=== PATIENT | female | born 1950 | race Caucasian/White ===

== ENCOUNTER 2017-09-26 14:43 | Emergency (ER) | payer OTHER ==
[~2017-09-26] VITALS: Ht 154.9 cm; Wt 77.9 kg
[~2017-09-26 14:43] MED LIST: ACET-1346 PO; ATOR-26 PO; CALCTAB30 PO; CRG25 PO; DIGO30TA PO; FLNIN/ NAE; FLUT1INH7 PO; LISI-461 PO; OMEG12006 PO; OSEL75CA12 PO; SNG10 PO; SPRIN/30 INH; WARF-246 PO; ZLF/100 PO
[2017-09-26 14:53] VITALS: TEMP 36.7; Ht 154.9 cm; Wt 77.9 kg
[2017-09-26] MEDS ORDERED: FENTANYL CITRATE INJ 50 MCG/1 ML 2 ML VIAL ONE (14:56)
--- NOTE | 2017-09-26 16:21 | DIAGNOSTIC IMAGING REPORT ---
L-SPINE MIN 4 VIEWS ROUTINE HISTORY: Trauma. Pain. low back pain fall COMPARISON: Lateral chest series 03/27/2015 FINDINGS: Mild wedge deformity superior endplate T12. Estimated loss of vertebral body height is 20%. Moderate degenerative change throughout all remaining components of the lumbar region. No additional acute bony abnormality. Moderate degenerative disc changes throughout. No subluxation. IMPRESSION: Mild compression deformity superior endplate T12. Degenerative changes of the lumbar spine. No additional acute bony abnormality. The above report was generated using voice recognition software. It may contain grammatical, syntax or spelling errors. Electronically signed by: Corey Loredo M.D. 09/26/2017 4:20 PM Dictated Date/Time: 09/26/2017 4:18 PM
--- NOTE | 2017-09-26 16:24 | DIAGNOSTIC IMAGING REPORT ---
R RIBS UNILATERAL WITH PA CHEST CLINICAL HISTORY: Right rib pain following fall. COMPARISON STUDY: Chest radiograph August 01, 2016. FINDINGS: There is no pneumothorax or pleural effusion. Moderate cardiomegaly is unchanged. There is no evidence for pulmonary edema. There are multiple old right-sided rib fractures. No definite acute rib fractures are identified. IMPRESSION: No pneumothorax. Numerous old right rib fractures. No acute rib fractures identified by radiography. Electronically signed by: Ovi De Leon M.D. 09/26/2017 4:23 PM Dictated Date/Time: 09/26/2017 4:19 PM
[2017-09-26] MEDS ORDERED: OXYCODONE/ACETAMINOPHEN 5-325 TAB PO STA (16:34)
[2017-09-26] MEDS ORDERED: SALI1SPR3 NAE (16:45)
[2017-09-26] MEDS ORDERED: NYST100010 TD (16:45)
[2017-09-26] MEDS ORDERED: GLUC1CAP33 (16:45)
[2017-09-26] MEDS ORDERED: ALBU18002 INH (16:45)
[2017-09-26] MEDS ORDERED: MULT-506 PO (16:45)
[2017-09-26] MEDS ORDERED: OXGN (16:45)
[2017-09-26 17:15] VITALS: BP 132/95; PULSE 87; O2SAT 94
[2017-09-26] MEDS ORDERED: OXYC-57 PO (17:29)
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
== END 2017-09-26 17:46 | disposition home or self-care (01) ==
LOC: EDBD 14:43 → C.EDB 14:44
DX: S22.080A Wedge compression fracture of T11-T12 vertebra, initial encounter for closed fracture (principal); W19.XXXA Unspecified fall, initial encounter; F41.9 Anxiety disorder, unspecified; J45.909 Unspecified asthma, uncomplicated; I48.91 Unspecified atrial fibrillation; E78.5 Hyperlipidemia, unspecified; I50.9 Heart failure, unspecified; I10 Essential (primary) hypertension; K58.9 Irritable bowel syndrome, unspecified; I71.2 Thoracic aortic aneurysm, without rupture; Z79.01 Long term (current) use of anticoagulants; Z51.81 Encounter for therapeutic drug level monitoring; Z88.5 Allergy status to narcotic agent

== ENCOUNTER 2017-10-11 09:59 | Inpatient (IN) | payer OTHER ==
[2017-10-11] VITALS (13 sets, daily range): BP systolic 74–150; BP diastolic 22–90; PULSE 87–164; TEMP 37.1–38.1; O2SAT 80–99; Ht 157.5 cm; Wt 72.0 kg
[~2017-10-11] VITALS: Ht 157.5 cm; Wt 72.0 kg
[~2017-10-11 09:59] MED LIST changes: +ALBU18002 INH; +GLUC1CAP33; +MULT-506 PO; +NYST100010 TD; -OSEL75CA12 PO; +OXGN; +OXYC-57 PO; +SALI1SPR3 NAE
[2017-10-11] MEDS ORDERED: DILTIAZEM BOLUS / DRIP IV STA ×2 (10:09→13:34)
[2017-10-11] MEDS ORDERED: DILTIAZEM HCL 5 MG/ML 5 ML VIAL BOLUS/OMNI IV ONE (10:15)
[2017-10-11] MEDS ORDERED: ALBUT/IPRATROP 3MG/0.5MG NEB 3 ML VIAL ONE (10:15)
[2017-10-11] MEDS ORDERED: DILTIAZEM HCL 5 MG/ML 5 ML VIAL ONE (10:15)
[2017-10-11] MEDS ORDERED: DILTIAZEM HCL INJ 125 MG in DEXTROSE 5% 100ML IV PRN (10:15)
[2017-10-11 10:30] LABS: BASO % 0.1 %; BASO ABS # 0.03 K/uL (0-0.2); EOS % 0.2 %; EOS ABS # 0.04 K/uL (0-0.5); HEMATOCRIT 38.8 % (37-47); HEMOGLOBIN 13.2 g/dL (12.0-16.0); IG# 0.08 K/uL (0.00-0.02); LYMPH % 6.8 %; LYMPH ABS # 1.46 K/uL (1.2-3.4); MEAN CORPUSCULAR HEMOGLOBIN 32.7 pg (25-34); MEAN PLATELET VOLUME 9.1 fL (7.4-10.4); MONO % 6.1 %; MONO ABS # 1.31 K/uL (0.11-0.59); NEUT % 86.4 %; PLATELET COUNT 267 K/uL (130-400); RED CELL DISTRIBUTION WIDTH CV 13.4 % (11.5-14.5); RED CELL DISTRIBUTION WIDTH SD 47.1 fL (36.4-46.3); WHITE BLOOD COUNT 21.62 K/uL (4.8-10.8)
[2017-10-11] MEDS ORDERED: ALEN70TA2 PO (10:56)
[2017-10-11] MEDS ORDERED: DEXT1SYP6 PO (10:56)
[2017-10-11] MEDS ORDERED: DIPH-437 PO (10:56)
[2017-10-11] MEDS ORDERED: CHOL400T5 PO (10:56)
[2017-10-11] MEDS ORDERED: IMD/2 PO (10:56)
[2017-10-11] MEDS ORDERED: PROB1CAP6 PO (10:56)
[2017-10-11] MEDS ORDERED: CEFTRIAXONE SOD INJ 1 GM ADDVIAL IV STA (10:57)
--- NOTE | 2017-10-11 10:58 | DIAGNOSTIC IMAGING REPORT ---
CHEST ONE VIEW PORTABLE CLINICAL HISTORY: Evaluate Fever/Sepsis fever. Sepsis. COMPARISON STUDY: 08/01/2016 FINDINGS: Moderate cardiomegaly considered stable. Mild increase in prominence of the pulmonary vasculature. Early congestive failure is considered. No focal infiltrate. IMPRESSION: Probable early congestive failure. The above report was generated using voice recognition software. It may contain grammatical, syntax or spelling errors. Electronically signed by: Corey Loredo M.D. 10/11/2017 10:57 AM Dictated Date/Time: 10/11/2017 10:56 AM
[2017-10-11] MEDS ORDERED: AZITHROMYCIN IV 500 MG in DEXTROSE 5% 250ML 250 ML IV ONE (11:00)
[2017-10-11 11:29] LABS: ALBUMIN 2.9 gm/dl (3.4-5.0); ALT/SGPT 31 U/L (12-78); BLOOD UREA NITROGEN 17 mg/dl (7-18); CALCIUM 8.8 mg/dl (8.5-10.1); CARBON DIOXIDE 25 mmol/L (21-32); CREATININE 0.74 mg/dl (0.60-1.20); GLUCOSE 147 mg/dl (70-99); INR 2.3 (0.9-1.1); LIPASE 44 U/L (73-393); POTASSIUM 4.4 mmol/L (3.5-5.1); SODIUM 133 mmol/L (136-145)
[2017-10-11 11:33] LABS: PTT PATIENT 45.5 SECONDS (21.0-31.0)
[2017-10-11 11:40] LABS: ALKALINE PHOSPHATASE 138 U/L (45-117); AST/SGOT 31 U/L (15-37); CKMB 0.7 ng/ml (0.5-3.6); TOTAL PROTEIN 7.3 gm/dl (6.4-8.2)
[2017-10-11 11:56] LABS: INFLUENZA B ANTIGEN Neg for Influ B (NEG)
--- NOTE | 2017-10-11 13:14 | EMERGENCY ROOM VISIT NOTE ---
History Report prepared by Carlos: Madelaine Rodriguez Under the Supervision of: Dr. Fareed Head D.O. First contact with patient: 09:56 Stated Complaint: CHEST PAIN/RESPIRATORY History of Present Illness The patient is a 66 year old female who presents to the Emergency Room with complaints of worsening shortness of breath beginning yesterday. The patient states that she has had a productive cough with greenish sputum for the past 3 days. Last night she developed some chest pain and shortness of breath, which continued today. The patient's son went to check on her this morning and found her having difficulty breathing so he called an ambulance. Per EMS, the patient was in significant respiratory distress upon their arrival. They gave the patient a DuoNeb treatment and placed her on BiPAP. The patient was complaining of 9/10 chest pain. 15 mg IV Cardizem was administered and the patient states that her chest pain is now a 2/10. EMS reports that her HR was initially in the 200s and is now in the 110s. Her BP remained stable en route. She has a history of a-fib. The patient denies abdominal pain. Source of History: patient Onset: yesterday Position: chest Quality: other (shortness of breath) Timing: worsening Modifying Factors (Relieving): other (DuoNeb, BiPAP, Cardizem) Associated Symptoms: + cough, + chest pain, No abdominal pain Review of Systems See HPI for pertinent positives & negatives. A total of 10 systems reviewed and were otherwise negative. Past Medical & Surgical Medical Problems: (1) Acute respiratory failure (2) Anxiety (3) Asthma (4) Atrial fibrillation with RVR (5) Chronic atrial fibrillation (6) Chronic systolic CHF (congestive heart failure) (7) Dyslipidemia (8) Elbow fracture, right (9) HTN (hypertension) (10) IBS (irritable bowel syndrome) (11) Non-ischemic cardiomyopathy (12) Thoracic aortic aneurysm Surgical Problems: (1) History of tonsillectomy and adenoidectomy (2) Hx of cataract surgery Family History No pertinent history stated. Social History Smoking Status: Never Smoker Drug Use: none Marital Status: Housing Status: lives with significant other Occupation Status: employed Current/Historical Medications Scheduled Acetaminophen/Diphenhydramine (Tylenol Pm), 1 TAB PO HS Alendronate Sodium (Fosamax), 70 MG PO WK Atorvastatin (Lipitor), 80 MG PO DAILY Carvedilol (Carvedilol), 25 MG PO BID Cholecalciferol (Vitamin D), 400 UNITS PO DAILY Digoxin (Digitek), 0.125 MG PO DAILY Fluticasone Furoate-Vilanterol (Breo Ellipta 200-25 Mcg/INH), 1 PUFF PO QAM Home O2 Therapy (Oxygen), 2 LITERS NA HS Lisinopril (Lisinopril), 10 MG PO QAM Montelukast Sod (Montelukast Sodium), 10 MG PO DAILY Multivitamin (Multivitamin), 1 TAB PO DAILY Probiotic Product (Probiotic Acidophilus), 1 CAP PO DAILY Sertraline HCl (Sertraline HCl), 100 MG PO BID Warfarin Sodium (Warfarin Sodium), 5 MG PO DAILY Scheduled PRN Acetaminophen (Acetaminophen), 650 MG PO Q6H PRN for Pain or Fever Dextromethorphan-Guaifenesin (Tussin Cough Dm), 10 ML PO Q4H PRN for Cough Fluticasone Propionate (Fluticasone Propionate), 2 SPRAYS SAFIA DAILY PRN for Allergy Symptoms Loperamide Hcl (Imodium), 2 MG PO DIRECTED PRN for Diarrhea Nystatin (Topical) (Nystop), 1 APPLN TD BID PRN for AFFECTED SKIN AREA Oxycodone/Acetaminophen 5MG/325MG (Percocet 5MG/325MG), 1 TAB PO Q6H PRN for Pain Tiotropium [place] (Spiriva Handihaler), 1 PUFF INH DAILY PRN for Shortness of Breath Allergies Coded Allergies: Morphine (Verified Adverse Reaction, Mild, NAUSEA, 09/26/17) Physical Exam Vital Signs Date Time Temp Pulse Resp B/P (MAP) Pulse Ox O2 Delivery O2 Flow Rate FiO2 10/11/17 12:31 107 22 170/95 92 BiPAP 10/11/17 12:26 95 BiPAP 4.0 40 10/11/17 11:57 113 16 148/92 95 Room Air 10/11/17 10:48 113 22 169/113 95 Nasal Cannula 4.0 10/11/17 10:33 BiPAP 10/11/17 10:10 114 10/11/17 10:09 37.7 109 28 146/97 88 Room Air 10/11/17 10:09 97 BiPAP 10/11/17 10:00 106 97 40 Physical Exam CONSTITUTIONAL/VITAL SIGNS: Reviewed / noted above. GENERAL: Non-toxic in appearance. INTEGUMENTARY: Warm, dry, and [place]. HEAD: Normocephalic. EYES: without scleral icterus or trauma. ENT/OROPHARYNX: clear and moist. LYMPHADENOPATHY/NECK: Is supple without lymphadenopathy or meningismus. RESPIRATORY: Diminished bilaterally, tachypnea, occasional cough. CARDIOVASCULAR: Slightly tachycardic and irregular. GI/ABDOMEN: Soft and nontender. No organomegaly or pulsatile mass. No rebound or guarding. Normal bowel sounds. EXTREMITIES: Warm and well perfused. BACK: No CVA tenderness. NEUROLOGICAL: Intact without focal deficits. PSYCHIATRIC: normal affect. MUSCULOSKELETAL: Normally developed with good muscle tone. Medical Decision & Procedures ER Provider Diagnostic Interpretation: Radiology results as stated below per my review and radiologist interpretation: CHEST ONE VIEW PORTABLE CLINICAL HISTORY: Evaluate Fever/Sepsis fever. Sepsis. COMPARISON STUDY: 08/01/2016 FINDINGS: Moderate cardiomegaly considered stable. Mild increase in prominence of the pulmonary vasculature. Early congestive failure is considered. No focal infiltrate. IMPRESSION: Probable early congestive failure. The above report was generated using voice recognition software. It may contain grammatical, syntax or spelling errors. Electronically signed by: Corey Loredo M.D. 10/11/2017 10:57 AM Dictated Date/Time: 10/11/2017 10:56 AM Laboratory Results 10/11/17 10:20 Red Blood Count 4.04, Mean Corpuscular Volume 96.0, Mean Corpuscular Hemoglobin 32.7, Mean Corpuscular Hemoglobin Concent 34.0, Mean Platelet Volume 9.1, Neutrophils (%) (Auto) 86.4, Lymphocytes (%) (Auto) 6.8, Monocytes (%) (Auto) 6.1, Eosinophils (%) (Auto) 0.2, Basophils (%) (Auto) 0.1, Neutrophils # (Auto) 18.70, Lymphocytes # (Auto) 1.46, Monocytes # (Auto) 1.31, Eosinophils # (Auto) 0.04, Basophils # (Auto) 0.03 10/11/17 11:04 Test 10/11/17 10:09 10/11/17 10:20 10/11/17 10:45 10/11/17 11:04 White Blood Count 21.62 K/uL (4.8-10.8) Red Blood Count 4.04 M/uL (4.2-5.4) Hemoglobin 13.2 g/dL (12.0-16.0) Hematocrit 38.8 % (37-47) Mean Corpuscular Volume 96.0 fL (80-100) Mean Corpuscular Hemoglobin 32.7 pg (25-34) Mean Corpuscular Hemoglobin Concent 34.0 g/dl (32-36) Platelet Count 267 K/uL (130-400) Mean Platelet Volume 9.1 fL (7.4-10.4) Neutrophils (%) (Auto) 86.4 % Lymphocytes (%) (Auto) 6.8 % Monocytes (%) (Auto) 6.1 % Eosinophils (%) (Auto) 0.2 % Basophils (%) (Auto) 0.1 % Neutrophils # (Auto) 18.70 K/uL (1.4-6.5) Lymphocytes # (Auto) 1.46 K/uL (1.2-3.4) Monocytes # (Auto) 1.31 K/uL (0.11-0.59) Eosinophils # (Auto) 0.04 K/uL (0-0.5) Basophils # (Auto) 0.03 K/uL (0-0.2) RDW Standard Deviation 47.1 fL (36.4-46.3) RDW Coefficient of Variation 13.4 % (11.5-14.5) Immature Granulocyte % (Auto) 0.4 % Immature Granulocyte # (Auto) 0.08 K/uL (0.00-0.02) Influenza Type A Antigen Neg for Influ A (NEG) Influenza Type B Antigen Neg for Influ B (NEG) Prothrombin Time 24.1 SECONDS (9.0-12.0) Prothromb Time International Ratio 2.3 (0.9-1.1) Activated Partial Thromboplast Time 45.5 SECONDS (21.0-31.0) Partial Thromboplastin Ratio 1.8 Anion Gap 7.0 mmol/L (3-11) Est Creatinine Clear Calc Drug Dose 73.2 ml/min Estimated GFR () 98.5 Estimated GFR (Non- 85.0 BUN/Creatinine Ratio 22.7 (10-20) Calcium Level 8.8 mg/dl (8.5-10.1) Total Bilirubin 0.3 mg/dl (0.2-1) Direct Bilirubin 0.1 mg/dl (0-0.2) Aspartate Amino Transf (AST/SGOT) 31 U/L (15-37) Alanine Aminotransferase (ALT/SGPT) 31 U/L (12-78) Alkaline Phosphatase 138 U/L (45-117) Total Creatine Kinase 49 U/L (26-192) Creatine Kinase MB 0.7 ng/ml (0.5-3.6) Creatine Kinase MB Ratio 1.4 (0-3.0) Troponin I < 0.015 ng/ml (0-0.045) Total Protein 7.3 gm/dl (6.4-8.2) Albumin 2.9 gm/dl (3.4-5.0) Lipase 44 U/L (73-393) Thyroid Stimulating Hormone (TSH) 0.636 uIu/ml (0.300-4.500) Test 10/11/17 12:49 Laboratory results as stated above per my review. Medications Administered Medications (Trade) Dose Ordered Sig/Malinda Route Start Time Stop Time Status Last Admin Dose Admin Diltiazem HCl (Cardizem Inj) 5 mg 1015 ONCE IV 10/11/17 10:15 10/11/17 10:16 DC 10/11/17 10:30 5 MG Diltiazem HCl 125 mg/Dextrose 125 ml @ 0 mls/hr Q0M PRN IV 10/11/17 10:15 11/10/17 10:14 10/11/17 10:30 8 MLS/HR Ceftriaxone Sodium (Rocephin Inj) 1 gm NOW STAT IV 10/11/17 10:57 10/11/17 10:59 DC 10/11/17 12:28 1 GM ECG Per My Interpretation Indication: SOB/dyspnea Rate (beats per minute): 101 Rhythm: atrial fibrillation Findings: no ectopy, other (no ST elevations) ED Course I took medical command prior to the patient's arrival in the department today. 1001: Previous medical records were reviewed. The patient was evaluated in room B12B. A complete history and physical examination was performed. 1009: Diltiazem HCl Bolus/Drip IV 1055: I updated the patient. 1057: Rocephin 1 gm IV 1100: Azithromycin 500 mg/Dextrose 255 ml @ 125 mls/hr IV 1228: I spoke with Zaynab Urbina PA-C. We discussed the patient's case. The patient will be evaluated by the [facility] for further management. 1233: I reassessed the patient at this time. She is feeling better and resting comfortably. I discussed the results and treatment plan with the patient. I answered all pertaining questions that she had. She expressed understanding and verbalized agreement. Medical Decision Differentials considered include acute myocardial infarction, acute coronary syndrome, myocarditis, pericarditis, pericardial effusions /tamponade, esophageal perforation, thoracic aortic dissection, pulmonary embolism, pneumonia, pneumothorax, pancreatitis, shingles, acute cholecystitis, and perforated abdominal viscus. This is a 66-year-old female who presents to the ED with a chief complaint of shortness of breath. The patient was found by the son having shortness of breath and a little confusion. The patient was encountered by EMS and found to be in rapid A. fib with a heart rate around 200. The patient was also having severe respiratory distress requiring CPAP by EMS. Her arrival was preceded by 15 mg of IV Cardizem that slow down her rate into the 100 range. The patient was on BiPAP on arrival. Her breathing appears more comfortable. She is able to speak somewhat through the BiPAP. Her initial EKG showed A. fib at a rate of 101 without acute injuries. Chest x-ray reveals findings suggesting early CHF. The patient does report a productive cough for green and yellow sputum for the past several days. She denies any vomiting but did report some chest discomfort. Her white blood cell count was 21,000. INR is 2.3. She is on Coumadin for chronic A. fib. Complete metabolic panel was unremarkable, troponin was negative, TSH is normal and flu swab was negative. The patient was started on Cardizem drip as well as started empirically on IV antibiotics. She was weaned to nasal cannula at some point during her stay. The patient was seen by the hospitalist for further evaluation and care. Medication Reconcilliation Current Medication List: was personally reviewed by me Blood Pressure Screening Patient's blood pressure: Elevated blood pressure Blood pressure disposition: Referred to PCP Consults Time Called: 1224 Consulting Physician: Zaynab Urbina PA-C Returned Call: 1228 I spoke with Zaynab Urbina PA-C. We discussed the patient's case. [facility] Impression Primary Impression: Acute respiratory failure Additional Impressions: Atrial fibrillation with RVR CHF (congestive heart failure) Pneumonia Critical Care I have personally spent greater than 35 minutes of critical care time in the direct management of this patient. This includes bedside care, interpretation of diagnostic studies, and testing, discussion with consultants, patient, and family members, and other required patient management activities. This 35 minutes is in excess of all separately billable procedures. Scribe Attestation The scribe's documentation has been prepared under my direction and personally reviewed by me in its entirety. I confirm that the note above accurately reflects all work, treatment, procedures, and medical decision making performed by me. Departure Information Dispostion Being Evaluated By Hospitalist Referrals Renée Bateman D.O. (PCP) Problem Qualifiers
[2017-10-11] MEDS ORDERED: ONDANSETRON INJ 2 MG/ML 2 ML VIAL IV PRN (13:15)
[2017-10-11] MEDS ORDERED: ACETAMINOPHEN 325 MG TAB PO PRN (13:15)
[2017-10-11] MEDS ORDERED: ALBU18002 INH (13:55)
[2017-10-11] MEDS ORDERED: CALCTAB30 PO (13:55)
--- NOTE | 2017-10-11 14:31 | History and Physical ---
History & Physical Date & Time of Service: Oct 11, 2017 at 14:17 Chief Complaint: Chest Pain/Respiratory Primary Care Physician: Renée Bateman D.O. History of Present Illness Source: patient, clinic records, hospital records This is a 66yo F with a PMH of chronic A Fib (on coumadin), systolic HF (EF of 50%), asthma/COPD, HTN, MATTHEW and other medical problems listed below who presents with SOB x 2 days. Patient developed a cough 3 days ago that is productive with green sputum. Endorses chills, subjective fever, wheezing and pleuritic chest pain. States that chest hurts only when coughing and is a 2/10. Required 2L NC O2 for the past two nights 2/2 SOB, which she usually does not need. Daughter visited patient this AM and found her in respiratory distress with mild confusion. EMS was called and EKG showed A Fib with RVR at a rate ~ 200. Also found to be hypoxic on room air to 70%. Was given 15mg IV cardizem en route as well as a duoneb treatment and placed on bipap. Once in ED, HR improved to 110s and O2 saturation improved to mid-90s on bipap. Patient states she has been taking all medications and inhalers as scheduled at home but did not taking any today. Denies any lightheadedness, confusion, near-syncope, diaphoresis, visual changes, palpitations, abdominal pain, nausea, vomiting or LE swelling. Past Medical/Surgical History Medical Problems: (1) Anxiety Status: Chronic (2) Asthma Status: Chronic (3) Chronic atrial fibrillation Status: Chronic (4) Chronic systolic CHF (congestive heart failure) Permanent Comment: EF 50-54% Status: Chronic (5) Dyslipidemia Status: Chronic (6) HTN (hypertension) Status: Chronic (7) IBS (irritable bowel syndrome) Status: Chronic (8) Non-ischemic cardiomyopathy Permanent Comment: negative stress test 07/2014 Status: Chronic (9) Thoracic aortic aneurysm Status: Chronic (10) Thoracic vertebral fracture Permanent Comment: Sep 2017. Traumatic T12 fracture, closed Status: Chronic Surgical Problems: (1) History of tonsillectomy and adenoidectomy Status: Resolved (2) Hx of cataract surgery Status: Resolved Family History Diabetes mellitus FH: congestive heart failure Social History Smoking Status: Never Smoker Drug Use: none Marital Status: Housing status: lives with family Immunizations History of Influenza Vaccine: Yes Influenza Vaccine Date: Jul 07, 2014 History of Tetanus Vaccine?: Yes History of Pneumococcal: Yes Pneumococcal Date: Jul 07, 2012 History of Hepatitis B Vaccine: No Allergies Coded Allergies: Morphine (Verified Adverse Reaction, Mild, NAUSEA, 09/26/17) Home Medications Scheduled Alendronate Sodium (Fosamax), 70 MG PO WK Atorvastatin (Lipitor), 80 MG PO DAILY Jrmntkq-Cgfhhkand-Ifyt (Calcium/Magnesium/Zinc), 1 TAB PO DAILY Carvedilol (Carvedilol), 25 MG PO BID Digoxin (Digitek), 0.125 MG PO DAILY Fluticasone Furoate-Vilanterol (Breo Ellipta 200-25 Mcg/INH), 1 PUFF PO QAM Home O2 Therapy (Oxygen), 2 LITERS NA HS Lisinopril (Lisinopril), 10 MG PO QAM Montelukast Sod (Montelukast Sodium), 10 MG PO DAILY Multivitamin (Multivitamin), 1 TAB PO DAILY Probiotic Product (Probiotic Acidophilus), 1 CAP PO DAILY Sertraline HCl (Sertraline HCl), 100 MG PO BID Warfarin Sodium (Warfarin Sodium), 5 MG PO DAILY Scheduled PRN Acetaminophen (Acetaminophen), 650 MG PO Q6H PRN for Pain or Fever Albuterol Sulfate (Proair Respiclick), 2 PUFFS INH Q4 PRN for SOB/Wheezing Dextromethorphan-Guaifenesin (Tussin Cough Dm), 10 ML PO Q4H PRN for Cough Fluticasone Propionate (Fluticasone Propionate), 2 SPRAYS SAFIA DAILY PRN for Allergy Symptoms Tiotropium [place] (Spiriva Handihaler), 1 PUFF INH DAILY PRN for Shortness of Breath Review of Systems Constitutional: + fatigue, No fever, No chills, No sweats, No weight loss, No weakness Eyes: No worsening of vision, No eye pain ENT: + nasal symptoms, No hearing loss, No sore throat, No tinnitus Respiratory: + cough, + sputum, + wheezing, + shortness of breath, + dyspnea on exertion, + dyspnea at rest, No hemoptysis Cardiovascular: No chest pain, No orthopnea, No PND, No edema, No palpitations Abdomen: No pain, No nausea, No vomiting, No diarrhea, No constipation Musculoskeletal: No joint pain, No muscle pain, No swelling, No calf pain Genitourinary - Female: No dysuria, No urinary frequency Neurologic: No memory loss, No paralysis, No weakness, No numbness/tingling Psychiatric: + anxiety, No depression symptoms, No anhedonism Hematologic / Lymphatic: No abnormal bleeding/bruising Physical Exam Vital Signs Date Time Temp Pulse Resp B/P (MAP) Pulse Ox O2 Delivery O2 Flow Rate FiO2 10/11/17 13:21 134 10/11/17 13:21 128 38 153/110 94 BiPAP 10/11/17 12:31 107 22 170/95 92 BiPAP 10/11/17 12:26 95 BiPAP 4.0 40 10/11/17 11:57 113 16 148/92 95 Room Air 10/11/17 10:48 113 22 169/113 95 Nasal Cannula 4.0 10/11/17 10:33 BiPAP 10/11/17 10:10 114 10/11/17 10:09 37.7 109 28 146/97 88 Room Air 10/11/17 10:09 97 BiPAP 10/11/17 10:00 106 97 40 General Appearance: + mild distress, + pertinent finding (Bipap mask in place. Able to nod yes/no. ) Head: normocephalic, atraumatic Eyes: normal inspection, PERRL, sclerae normal ENT: normal ENT inspection, hearing grossly normal, + pertinent finding (bipap mask ) Neck: supple, no JVD Respiratory/Chest: chest non-tender, + wheezing (Diffuse wheezing throughout lung corea ), + pertinent finding (Tachypneic. Improved with bipap ) Cardiovascular: normal peripheral pulses, + tachycardia, + irregularly irregular Abdomen/GI: non tender, soft, no organomegaly, + pertinent finding (ventral hernia ) Back: normal inspection, + pertinent finding (small bruises on thoracic spine. Non-tender ) Extremities/Musculoskelatal: normal inspection, no calf tenderness, no pedal edema Neurologic/Psych: no motor/sensory deficits, alert, normal mood/affect, oriented x 3 Skin: normal color, warm/dry Diagnostics Laboratory Results Results Past 24 Hours Test 10/11/17 10:09 10/11/17 10:20 10/11/17 10:45 10/11/17 11:04 Range/Units Creatine Kinase MB Ratio 1.4 0-3.0 White Blood Count 21.62 4.8-10.8 K/uL Red Blood Count 4.04 4.2-5.4 M/uL Hemoglobin 13.2 12.0-16.0 g/dL Hematocrit 38.8 37-47 % Mean Corpuscular Volume 96.0 80-100 fL Mean Corpuscular Hemoglobin 32.7 25-34 pg Mean Corpuscular Hemoglobin Concent 34.0 32-36 g/dl Platelet Count 267 130-400 K/uL Mean Platelet Volume 9.1 7.4-10.4 fL Neutrophils (%) (Auto) 86.4 % Lymphocytes (%) (Auto) 6.8 % Monocytes (%) (Auto) 6.1 % Eosinophils (%) (Auto) 0.2 % Basophils (%) (Auto) 0.1 % Neutrophils # (Auto) 18.70 1.4-6.5 K/uL Lymphocytes # (Auto) 1.46 1.2-3.4 K/uL Monocytes # (Auto) 1.31 0.11-0.59 K/uL Eosinophils # (Auto) 0.04 0-0.5 K/uL Basophils # (Auto) 0.03 0-0.2 K/uL RDW Standard Deviation 47.1 36.4-46.3 fL RDW Coefficient of Variation 13.4 11.5-14.5 % Immature Granulocyte % (Auto) 0.4 % Immature Granulocyte # (Auto) 0.08 0.00-0.02 K/uL Influenza Type A Antigen Neg for Influ A NEG Influenza Type B Antigen Neg for Influ B NEG Prothrombin Time 24.1 9.0-12.0 SECONDS Prothromb Time International Ratio 2.3 0.9-1.1 Activated Partial Thromboplast Time 45.5 21.0-31.0 SECONDS Partial Thromboplastin Ratio 1.8 Sodium Level 133 136-145 mmol/L Potassium Level 4.4 3.5-5.1 mmol/L Chloride Level 101 98-107 mmol/L Carbon Dioxide Level 25 21-32 mmol/L Anion Gap 7.0 3-11 mmol/L Blood Urea Nitrogen 17 7-18 mg/dl Creatinine 0.74 0.60-1.20 mg/dl Est Creatinine Clear Calc Drug Dose 73.2 ml/min Estimated GFR () 98.5 Estimated GFR (Non- 85.0 BUN/Creatinine Ratio 22.7 10-20 Random Glucose 147 70-99 mg/dl Calcium Level 8.8 8.5-10.1 mg/dl Total Bilirubin 0.3 0.2-1 mg/dl Direct Bilirubin 0.1 0-0.2 mg/dl Aspartate Amino Transf (AST/SGOT) 31 15-37 U/L Alanine Aminotransferase (ALT/SGPT) 31 12-78 U/L Alkaline Phosphatase 138 45-117 U/L Total Creatine Kinase 49 26-192 U/L Creatine Kinase MB 0.7 0.5-3.6 ng/ml Troponin I < 0.015 0-0.045 ng/ml Total Protein 7.3 6.4-8.2 gm/dl Albumin 2.9 3.4-5.0 gm/dl Lipase 44 73-393 U/L Thyroid Stimulating Hormone (TSH) 0.636 0.300-4.500 uIu/ml Test 10/11/17 12:49 10/11/17 13:52 Range/Units Microbiology Results 10/11/17 Blood Culture, Received Pending 10/11/17 Blood Culture, Received Pending Diagnostic Radiology CXR: IMPRESSION: Probable early congestive failure. EKG Atrial fibrillation with rapid ventricular response. Nonspecific ST and T wave abnormality. When compared with ECG of 01-AUG-2016 16:15, Nonspecific T wave abnormality, worse in Inferior leads. Impression Assessment and Plan This is a 66yo F with a PMH of chronic A Fib (on coumadin), mild systolic HF ( EF of 50%), asthma/COPD, HTN, MATTHEW and other medical problems listed below who presents with SOB x 2 days. Acute respiratory failure 2/2 asthma, COPD exacerbation: -Found to be hypoxic in 70s by EMS on room air -Bipap initiated and O2 saturation improved to mid-90s -Recent cough, SOB and leukocytosis of 21.6 -Likely underlying bronchitis vs developing PNA. CXR without opacities -Desaturated when placed on non-rebreather; bipap restarted -ABG with respiratory acidosis with pH 7.27, pco2 of 60 -Cefepime, azithromycin for pulmonary coverage -Blood, sputum cultures pending. Flu PCR pending -IV solu-medrol, xopenex nebs -Pulm consulted. Appreciate recommendations -One-on-one to ensure patient keeps mask on -Keep NPO for now A Fib with RVR: -H/o chronic A fib -Found with A Fib with HR of 200 per EMS -HR now ~110s on cardizem drip -Likely 2/2 to pulmonary infection -Electrolytes, TSH wnl -Continue cardizem drip -Home Digoxin, carvedilol held while NPO -Cont warfarin -INR therapeutic at 2.3 -Cardio consulted -Echo done at bedside There was atrial fibrillation during the examination. The left ventricular cavity size is normal. The LV wall thickness is moderately increased (concentric). There is borderline diffuse left ventricular hypokinesis. The qualitative LV ejection fraction is 5054% The left atrium is severely enlarged (>48 ml/m^2,). The aortic valve is moderately calcified. Mild aortic valve stenosis is present. There is trace aortic insufficiency The proximal ascending thoracic aorta is moderately enlarged Chest pain: -Pleuritic in nature -Denies chest pain otherwise -Initial troponin negative -EKG with A Fib, some ST and T wave abnormalities in inferior leads -H/o non-obstructive CAD -Negative stress test in 2013 -Trend troponin -Repeat EKG in am -Cardio on board Chronic systolic CHF: -Euvolemic on exam -CXR with probable early CHF -BNP pending -Echo as noted above -Given 40mg IV lasix Hyperglycemia: -No documented DM II -Likely 2/2 steroids, duonebs -Loose correction factor -BCG checks Q6H while NPO -Check a1c in AM HTN: -Normotensive -Hold home meds while on Cardizem drip MATTHEW: -Cont Zoloft BID Recent T12 fracture: -Traumatic, closed T12 fracture on 09/26 -Denies any pain currently -PCP just initiated weekly Fosamax for osteoporosis -patient has not started yet -Ortho follow-up needed at discharge -PT/OT evals due to deconditioned state Nocturnal hypoxemia: -Uses 2L NC O2 at night PRN DVT Ppx: Continue warfarin Code status: DNR per discussion with patient PCP: Bhavana Dispo: Admitted to telemetry. Discharge planning ordered. Patient seen in collaboration with Dr. Garcia. Please see addendum. Advanced Directives Existing Living Will: No Existing Power of Metal Grinder: No Resuscitation Status VTE Prophylaxis Will order VTE Prophylaxis: Yes Note ATTENDING ADDENDUM Record reviewed. Patient interviewed and examined. Care coordinated with Zaynab Urbina PA-C. Please refer to her documentation for patient's history. Briefly, 66-year-old female with a history of chronic atrial fibrillation, aortic stenosis, COPD, and other problems. Presented to ED with fever, cough, shortness of breath; found to be in atrial fibrillation with a rapid rate ventricular response. O2 saturation as low as 70% on RA. EXAM: General- adult female, appears to be chronically and acutely ill Neck- trachea midline Lungs- scattered rhonchi, diffuse wheezing, bibasilar rales; acute respiratory distress Cardiovascular- irregular, tachycardic; auscultation very limited due to respiratory distress; + JVD; trace pretibial edema Abdomen- + bowel sounds, soft, nontender Extremities- no cyanosis; no calf tenderness Neuro- lethargic Skin- warm & dry DATA: Troponin less than 0.015. WBC 21,620. INR 2.3. Other lab studies as noted. Chest x-ray reviewed and demonstrated cardiomegaly, pulmonary vascular congestion, no focal infiltrates. EKG performed at 1010 reviewed and demonstrated atrial fibrillation with a ventricular rate of 101/minute, baseline artifact, inferior and lateral ST depression. ASSESSMENT AND PLAN: Acute hypoxic and hypercapnic respiratory distress/respiratory failure. Respiratory failure probably multifactorial. Underlying COPD. Probable lower respiratory tract infection, but no infiltrates on chest x-ray. Suspected pulmonary edema. Chronic atrial fibrillation, now with rapid ventricular response. Aortic stenosis. Cardiology and Pulmonary Medicine consulted. Received ceftriaxone in the ED for respiratory tract infection. Antibiotic coverage changed to azithromycin and cefepime for broader coverage. Intravenous methylprednisolone and levalbuterol nebulizer treatments ordered for bronchospasm. IV furosemide ordered for CHF. Started on diltiazem infusion for rapid atrial fibrillation. Amiodarone infusion recommended for rate control instead of diltiazem due to hypotension with diltiazem infusion. BiPAP for ventilatory support. Patient is critically ill. Resuscitation status was discussed with patient and by Ms. Urbina in ED ; patient made it clear that she did not wish to have resuscitation attempted or mechanical ventilation. DNR status confirmed with again after admission to Telemetry Unit. Continue warfarin for atrial fibrillation as well as VTE prophylaxis. Please refer to ARIEL Urbina's documentation for discussion of other issues. Zaid Garcia MD
[2017-10-11] MEDS ORDERED: FUROSEMIDE INJ 40 MG in SYRINGE 0 ML IV STA (14:49)
[2017-10-11] MEDS ORDERED: FUROSEMIDE 40 MG/4 ML VIAL ONE (14:50)
--- NOTE | 2017-10-11 14:56 | Cardiology Consultation ---
Cardiology Consultation Date of Service Oct 11, 2017. Cardiology Consultation Indication: Respiratory failure History: This is a 66-year-old female who is been followed by Dr. De La Fuente and last seen approximately a year ago with chronic atrial fibrillation and aortic valve disease. She presented to the emergency department with a history of fever and a productive cough. She was in respiratory extremis in the emergency department along with atrial fibrillation with RVR. She was started on BiPAP as well as a Cardizem drip. The patient became anxious and upon transfer to the floor she had taken BiPAP off. When she presented to the floor she was again in respiratory extremis. BiPAP was reinitiated. She is currently stable. The history is taken from the medical record. Allergies: Morphine Reported Home Medications Medications Dose Route/Sig Max Daily Dose Days Date Category Dose Instructions Calcium/Magnesium/Zinc (Qpriutu-Dazduqvdw-Yihw) 1 Tab Tab 1 Tab PO DAILY 10/11/17 Reported Rdtatbf-Bggnzamca-Lekf dose of 167-83-8 mg tabs daily Proair Respiclick (Albuterol Sulfate) 108 Mcg/Act Aer 2 Puffs INH Q4 PRN 10/11/17 Reported Tussin Cough Dm (Dextromethorphan-Guaifenesin) 1 Syp Syp 10 Ml PO Q4H PRN 10/11/17 Reported Fosamax (Alendronate Sodium) 70 Mg Tab 70 Mg PO WK 10/11/17 Reported Probiotic Acidophilus (Probiotic Product) 1 Cap Cap 1 Cap PO DAILY 10/11/17 Reported Multivitamin (Multivitamins) Tab 1 Tab PO DAILY 09/26/17 Reported Oxygen Gas 2 Liters NA HS 09/26/17 Reported Spiriva Handihaler (Tiotropium [place]) 30 Puff/540 Mcg Aerp 1 Puff INH DAILY PRN 08/01/16 Reported Fluticasone Propionate 120 Sprays/6000 Mcg Inha 2 Sprays SAFIA DAILY PRN 08/01/16 Reported Montelukast Sodium (Montelukast Sod) 10 Mg Tab 10 Mg PO DAILY 08/01/16 Reported Warfarin Sodium 5 Mg Tab 5 Mg PO DAILY 08/01/16 Reported TAKE 5 MG EVERY DAY OR OTHERWISE DIRECTED TO TAKE BY ANTICOAGULATION CLINIC/MD Sherman (Digoxin) 0.125 Mg Tab 0.125 Mg PO DAILY 08/01/16 Reported Lisinopril 10 Mg Tab 10 Mg PO QAM 08/01/16 Reported Carvedilol 25 Mg Tab 25 Mg PO BID 08/01/16 Reported Sertraline HCl 100 Mg Tab 100 Mg PO BID 08/01/16 Reported Breo Ellipta 200-25 Mcg/INH (Fluticasone Furoate-Vilanterol) 1 Inh Inh 1 Puff PO QAM 04/18/16 Reported Lipitor (Atorvastatin Calcium) 80 Mg Tab 80 Mg PO DAILY 03/26/15 Reported Acetaminophen 325 Mg Tab 650 Mg PO Q6H PRN 12/24/12 Reported Past medical history: In addition to the above the patient has had 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 The patient several weeks ago had a thoracic compression fracture. Social history: Patient is a non-smoker. She is and lives with her family Family medical history: Noncontributory Review of systems unobtainable Vital Signs Past 12 Hours Date Time Temp Pulse Resp B/P (MAP) Pulse Ox O2 Delivery O2 Flow Rate FiO2 10/11/17 15:38 102 40 98 BiPAP/CPAP 100 10/11/17 14:47 118 94 100 10/11/17 14:14 140 38 93 Non-Rebreather 10.0 10/11/17 13:21 134 10/11/17 13:21 128 38 153/110 94 BiPAP 10/11/17 12:31 107 22 170/95 92 BiPAP 10/11/17 12:26 95 BiPAP 4.0 40 10/11/17 11:57 113 16 148/92 95 Room Air 10/11/17 10:48 113 22 169/113 95 Nasal Cannula 4.0 10/11/17 10:33 BiPAP 10/11/17 10:10 114 10/11/17 10:09 37.7 109 28 146/97 88 Room Air 10/11/17 10:09 97 BiPAP 10/11/17 10:00 106 97 40 General Appearance: The patient is on BiPAP with respiratory extremis Head: Normocephalic Atraumatic. Eyes: PERRLA, EOMI, conjunctiva and sclera clear Neck: Supple. No carotid bruits noted. No JVD. No HJD. Respiratory: Wheezing and rhonchi throughout the lung corea Cardiovascular: Heart is irregular with tachycardia Abdomen: Normal bowel sounds, soft nontender. no abdominal bruits. Extremities: No edema, no clubbing or cyanosis. distal pulses 2/4 bilaterally. Neuro: No focal deficits. Psychiatric: Normal affect. Echocardiogram April 2017: Interpretation Summary The examination is adequate to evaluate the referral indication. A trivial posterior loculated pericardial effusion is present. There was atrial fibrillation during the examination. The left ventricular cavity size is normal. The LV wall thickness is moderately increased (concentric). There is borderline diffuse left ventricular hypokinesis. The qualitative LV ejection fraction is 5054% (normal). The left atrium is severely enlarged (>48 ml/m^2,). The aortic valve is moderately calcified. Mild aortic valve stenosis is present. There is trace aortic insufficiency. The proximal ascending thoracic aorta is moderately enlarged. The left ventricular diastolic function is abnormal by 2D findings. Last 24 Hours Test 10/11/17 10:09 10/11/17 10:20 10/11/17 10:45 10/11/17 11:04 Creatine Kinase MB Ratio 1.4 White Blood Count 21.62 K/uL Red Blood Count 4.04 M/uL Hemoglobin 13.2 g/dL Hematocrit 38.8 % Mean Corpuscular Volume 96.0 fL Mean Corpuscular Hemoglobin 32.7 pg Mean Corpuscular Hemoglobin Concent 34.0 g/dl Platelet Count 267 K/uL Mean Platelet Volume 9.1 fL Neutrophils (%) (Auto) 86.4 % Lymphocytes (%) (Auto) 6.8 % Monocytes (%) (Auto) 6.1 % Eosinophils (%) (Auto) 0.2 % Basophils (%) (Auto) 0.1 % Neutrophils # (Auto) 18.70 K/uL Lymphocytes # (Auto) 1.46 K/uL Monocytes # (Auto) 1.31 K/uL Eosinophils # (Auto) 0.04 K/uL Basophils # (Auto) 0.03 K/uL RDW Standard Deviation 47.1 fL RDW Coefficient of Variation 13.4 % Immature Granulocyte % (Auto) 0.4 % Immature Granulocyte # (Auto) 0.08 K/uL Influenza Type A Antigen Neg for Influ A Influenza Type B Antigen Neg for Influ B Prothrombin Time 24.1 SECONDS Prothromb Time International Ratio 2.3 Activated Partial Thromboplast Time 45.5 SECONDS Partial Thromboplastin Ratio 1.8 Sodium Level 133 mmol/L Potassium Level 4.4 mmol/L Chloride Level 101 mmol/L Carbon Dioxide Level 25 mmol/L Anion Gap 7.0 mmol/L Blood Urea Nitrogen 17 mg/dl Creatinine 0.74 mg/dl Est Creatinine Clear Calc Drug Dose 73.2 ml/min Estimated GFR () 98.5 Estimated GFR (Non- 85.0 BUN/Creatinine Ratio 22.7 Random Glucose 147 mg/dl Calcium Level 8.8 mg/dl Total Bilirubin 0.3 mg/dl Direct Bilirubin 0.1 mg/dl Aspartate Amino Transf (AST/SGOT) 31 U/L Alanine Aminotransferase (ALT/SGPT) 31 U/L Alkaline Phosphatase 138 U/L Total Creatine Kinase 49 U/L Creatine Kinase MB 0.7 ng/ml Troponin I < 0.015 ng/ml Total Protein 7.3 gm/dl Albumin 2.9 gm/dl Lipase 44 U/L Thyroid Stimulating Hormone (TSH) 0.636 uIu/ml Test 10/11/17 12:49 10/11/17 13:52 10/11/17 15:03 Digoxin Level 1.3 ng/ml Arterial Blood pH 7.26 Arterial Blood Partial Pressure CO2 60 mmHg Arterial Blood Partial Pressure O2 80 mm/Hg Arterial Blood HCO3 27 mmol/L Arterial Blood Oxygen Saturation 93.3 % Arterial Blood Base Excess -1.5 mEq/L Arterial Blood Gas Delivery 5 L Florentino Test POS Pro-B-Type Natriuretic Peptide 6227 pg/ml Impression: 1. Respiratory failure 2. Congestive heart failure 3. History of chronic atrial fibrillation now due to the respiratory extremis RVR 4. Possible community-acquired pneumonia Recommendations: By her own choice the patient has requested to be DNR. I think it is reasonable to treat her with BiPAP for comfort and with the hopes that this is a short time measure until the patient turns around. She has been given intravenous Lasix. I think this is appropriate in light of her elevated row natruretic peptide of 6227. Despite diltiazem and metoprolol the patient continues to be tachycardic which is most likely multifactorial. Unfortunately she is hypotensive on these medications and I think it might be best just to start her on an amiodarone infusion which will help control her heart rate without causing additional hypotension. This medication can always be stopped at a later time when she is more stable. We will follow along with you during her hospital stay. Thank you Dr. Antonio
[2017-10-11] MEDS ORDERED: SODIUM CHLORIDE 0.9% 10ML FLUSH IV ONE (15:00)
[2017-10-11] MEDS ORDERED: ATROPINE SULFATE 0.1 MG/ML 10 ML SYR IV ONE (15:00)
[2017-10-11] MEDS ORDERED: LEVALBUTEROL 0.63MG/3 ML NEB INH SCH (15:00)
[2017-10-11] MEDS ORDERED: LEVALBUTEROL 1.25MG/3ML NEB INH SCH (15:00)
[2017-10-11] MEDS ORDERED: SODIUM BICARB 8.4% INJ 50 MEQ/50 ML SYR IV ONE (15:00)
[2017-10-11] MEDS ORDERED: LEVALBUTEROL 0.63MG/3 ML NEB INH ONE (15:08)
[2017-10-11] MEDS ORDERED: LEVALBUTEROL 0.63MG/3 ML NEB INH PRN (15:15)
[2017-10-11] MEDS: METHYLPREDNISOLONE IV 40 MG in SYRINGE 0 ML IV SCH (15:42)
[2017-10-11] MEDS: CEFEPIME IV 2,000 MG in SYRINGE 7.5 ML IV SCH (15:43)
[2017-10-11] MEDS: IPRATROPIUM BROMIDE NEB SOLN 0.02% 2.5 ML VIAL INH SCH ×2 (16:00→19:58)
[2017-10-11] MEDS ORDERED: AMIODARONE IV BOLUS / DRIP IV STA (16:18)
--- NOTE | 2017-10-11 16:27 | DIAGNOSTIC IMAGING REPORT ---
CHEST ONE VIEW PORTABLE CLINICAL HISTORY: 66 years-old Female presenting with SOB. TECHNIQUE: Portable upright AP view of the chest was obtained. COMPARISON: 10/11/2017. FINDINGS: Atherosclerosis of aortic arch. Cardiac silhouette enlarged. Mild pulmonary vascular prominence. No focal infiltrate. No large pleural effusion or pneumothorax. Osseous structures normal. Upper abdomen normal. IMPRESSION: 1. Cardiomegaly. No other evidence of acute cardiopulmonary disease. Electronically signed by: Davis Pineda M.D. 10/11/2017 4:25 PM Dictated Date/Time: 10/11/2017 4:24 PM
[2017-10-11] MEDS ORDERED: AMIODARONE / D5W 100 ML PHARMACY PREPARED IV SCH ×2 (16:45)
[2017-10-11] MEDS ORDERED: 0.2 MICRON FILTER SET 1 EA IV ONE (16:45)
[2017-10-11] MEDS ORDERED: AMIODARONE / D5W 200 ML IV SCH (17:00)
[2017-10-11] MEDS ORDERED: GLUCAGON FOR INJ 1 MG VIAL SQ PRN (19:45)
[2017-10-11] MEDS ORDERED: DEXTROSE 50% 50 ML SYR IV PRN (19:45)
[2017-10-11] MEDS ORDERED: GLUCOSE 40% GEL 15 GM TUBE PO PRN (19:45)
[2017-10-11] MEDS ORDERED: GLUCOSE 10 TABS/TUBE PO PRN (19:45)
--- NOTE | 2017-10-11 19:58 | Pulmonary Consultation ---
History General Date of Service: Oct 11, 2017. Stated Complaint: Acute Respiratory Failure, Atrial Fibrillation HPI The patient is a 66 year old female with history of COPD, a-fib, HF, admitted this AM for shortness of breath, productive cough. At the time of my visit, I could not obtain a decent history because she was quite dyspneic, mildly lethargic, on BIPAP, very tachypneic. I understand that the patient does not want to be intubated, issued DNR. Review of Systems Difficult to obtain in her condition Past Medical History Past Medical History: COPD CHF Chronic a-fib HTN TAA Thoracic vertebral fracture Family History Diabetes mellitus FH: congestive heart failure Social History Hx Tobacco Use In Past Year?: No Smoking Status: Never Smoker Marital status: Housing status: lives with family Immunizations History of Influenza Vaccine: Yes Influenza Vaccine Date: Jul 07, 2014 History of Tetanus Vaccine?: Yes History of Pneumococcal: Yes Pneumococcal Date: Jul 07, 2012 History of Hepatitis B Vaccine: No History of MDRO History of MDRO: Yes Allergies Coded Allergies: Morphine (Verified Adverse Reaction, Mild, NAUSEA, 09/26/17) Current Medications Reported Home Medications Medications Dose Route/Sig Max Daily Dose Days Date Category Dose Instructions Calcium/Magnesium/Zinc (Eowzszl-Kyttgubgj-Ilof) 1 Tab Tab 1 Tab PO DAILY 10/11/17 Reported Dnjuqzo-Iflscvwcz-Qiry dose of 167-83-8 mg tabs daily Proair Respiclick (Albuterol Sulfate) 108 Mcg/Act Aer 2 Puffs INH Q4 PRN 10/11/17 Reported Tussin Cough Dm (Dextromethorphan-Guaifenesin) 1 Syp Syp 10 Ml PO Q4H PRN 10/11/17 Reported Fosamax (Alendronate Sodium) 70 Mg Tab 70 Mg PO WK 10/11/17 Reported Probiotic Acidophilus (Probiotic Product) 1 Cap Cap 1 Cap PO DAILY 10/11/17 Reported Multivitamin (Multivitamins) Tab 1 Tab PO DAILY 09/26/17 Reported Oxygen Gas 2 Liters NA HS 09/26/17 Reported Spiriva Handihaler (Tiotropium [place]) 30 Puff/540 Mcg Aerp 1 Puff INH DAILY PRN 08/01/16 Reported Fluticasone Propionate 120 Sprays/6000 Mcg Inha 2 Sprays SAFIA DAILY PRN 08/01/16 Reported Montelukast Sodium (Montelukast Sod) 10 Mg Tab 10 Mg PO DAILY 08/01/16 Reported Warfarin Sodium 5 Mg Tab 5 Mg PO DAILY 08/01/16 Reported TAKE 5 MG EVERY DAY OR OTHERWISE DIRECTED TO TAKE BY ANTICOAGULATION CLINIC/MD Sherman (Digoxin) 0.125 Mg Tab 0.125 Mg PO DAILY 08/01/16 Reported Lisinopril 10 Mg Tab 10 Mg PO QAM 08/01/16 Reported Carvedilol 25 Mg Tab 25 Mg PO BID 08/01/16 Reported Sertraline HCl 100 Mg Tab 100 Mg PO BID 08/01/16 Reported Breo Ellipta 200-25 Mcg/INH (Fluticasone Furoate-Vilanterol) 1 Inh Inh 1 Puff PO QAM 04/18/16 Reported Lipitor (Atorvastatin Calcium) 80 Mg Tab 80 Mg PO DAILY 03/26/15 Reported Acetaminophen 325 Mg Tab 650 Mg PO Q6H PRN 12/24/12 Reported Physical Physical Exam Vital Signs: Date Time Temp Pulse Resp B/P (MAP) Pulse Ox O2 Delivery O2 Flow Rate FiO2 10/11/17 15:38 102 40 98 BiPAP/CPAP 100 10/11/17 14:47 118 94 100 10/11/17 14:14 140 38 93 Non-Rebreather 10.0 10/11/17 13:21 134 10/11/17 13:21 128 38 153/110 94 BiPAP 10/11/17 12:31 107 22 170/95 92 BiPAP 10/11/17 12:26 95 BiPAP 4.0 40 10/11/17 11:57 113 16 148/92 95 Room Air 10/11/17 10:48 113 22 169/113 95 Nasal Cannula 4.0 10/11/17 10:33 BiPAP 10/11/17 10:10 114 10/11/17 10:09 37.7 109 28 146/97 88 Room Air 10/11/17 10:09 97 BiPAP 10/11/17 10:00 106 97 40 General: Moderate respiratory distress, on BIPAP Lungs: Extensive b/l wheezing CVS: Tachycardic, irregular Abd: Soft Ext: No edema Diagnostics Labs Results Past 24 Hours Test 10/11/17 10:09 10/11/17 10:20 10/11/17 10:45 10/11/17 11:04 Range/Units Creatine Kinase MB Ratio 1.4 0-3.0 White Blood Count 21.62 4.8-10.8 K/uL Red Blood Count 4.04 4.2-5.4 M/uL Hemoglobin 13.2 12.0-16.0 g/dL Hematocrit 38.8 37-47 % Mean Corpuscular Volume 96.0 80-100 fL Mean Corpuscular Hemoglobin 32.7 25-34 pg Mean Corpuscular Hemoglobin Concent 34.0 32-36 g/dl Platelet Count 267 130-400 K/uL Mean Platelet Volume 9.1 7.4-10.4 fL Neutrophils (%) (Auto) 86.4 % Lymphocytes (%) (Auto) 6.8 % Monocytes (%) (Auto) 6.1 % Eosinophils (%) (Auto) 0.2 % Basophils (%) (Auto) 0.1 % Neutrophils # (Auto) 18.70 1.4-6.5 K/uL Lymphocytes # (Auto) 1.46 1.2-3.4 K/uL Monocytes # (Auto) 1.31 0.11-0.59 K/uL Eosinophils # (Auto) 0.04 0-0.5 K/uL Basophils # (Auto) 0.03 0-0.2 K/uL RDW Standard Deviation 47.1 36.4-46.3 fL RDW Coefficient of Variation 13.4 11.5-14.5 % Immature Granulocyte % (Auto) 0.4 % Immature Granulocyte # (Auto) 0.08 0.00-0.02 K/uL Influenza Type A Antigen Neg for Influ A NEG Influenza Type B Antigen Neg for Influ B NEG Prothrombin Time 24.1 9.0-12.0 SECONDS Prothromb Time International Ratio 2.3 0.9-1.1 Activated Partial Thromboplast Time 45.5 21.0-31.0 SECONDS Partial Thromboplastin Ratio 1.8 Sodium Level 133 136-145 mmol/L Potassium Level 4.4 3.5-5.1 mmol/L Chloride Level 101 98-107 mmol/L Carbon Dioxide Level 25 21-32 mmol/L Anion Gap 7.0 3-11 mmol/L Blood Urea Nitrogen 17 7-18 mg/dl Creatinine 0.74 0.60-1.20 mg/dl Est Creatinine Clear Calc Drug Dose 73.2 ml/min Estimated GFR () 98.5 Estimated GFR (Non- 85.0 BUN/Creatinine Ratio 22.7 10-20 Random Glucose 147 70-99 mg/dl Calcium Level 8.8 8.5-10.1 mg/dl Total Bilirubin 0.3 0.2-1 mg/dl Direct Bilirubin 0.1 0-0.2 mg/dl Aspartate Amino Transf (AST/SGOT) 31 15-37 U/L Alanine Aminotransferase (ALT/SGPT) 31 12-78 U/L Alkaline Phosphatase 138 45-117 U/L Total Creatine Kinase 49 26-192 U/L Creatine Kinase MB 0.7 0.5-3.6 ng/ml Troponin I < 0.015 0-0.045 ng/ml Total Protein 7.3 6.4-8.2 gm/dl Albumin 2.9 3.4-5.0 gm/dl Lipase 44 73-393 U/L Thyroid Stimulating Hormone (TSH) 0.636 0.300-4.500 uIu/ml Test 10/11/17 12:49 10/11/17 13:52 10/11/17 14:38 10/11/17 15:03 Range/Units Digoxin Level 1.3 0.8-2.0 ng/ml Arterial Blood pH 7.26 7.35-7.45 Arterial Blood Partial Pressure CO2 60 35-46 mmHg Arterial Blood Partial Pressure O2 80 80-95 mm/Hg Arterial Blood HCO3 27 19-24 mmol/L Arterial Blood Oxygen Saturation 93.3 90-95 % Arterial Blood Base Excess -1.5 -9-1.8 mEq/L Arterial Blood Gas Delivery 5 L Florentino Test POS POS Bedside Glucose 231 70-90 mg/dl Pro-B-Type Natriuretic Peptide 6227 0-900 pg/ml Test 10/11/17 16:27 10/11/17 17:13 Range/Units Bedside Glucose 226 70-90 mg/dl Troponin I < 0.015 0-0.045 ng/ml Microbiology Results 10/11/17 Blood Culture, Received Pending 10/11/17 Blood Culture, Received Pending Diagnostic Radiology CXR: Atherosclerosis of aortic arch. Cardiac silhouette enlarged. Mild pulmonary vascular prominence. No focal infiltrate. No large pleural effusion or pneumothorax. Osseous structures normal. Upper abdomen normal. Impression Assessment and Plan Acute respiratory failure with hypoxia and hypercapnia COPD exacerbation CHF A-fib with RVR Plan: Continue non-invasive ventilation. I increased the settings to 15/6. Administered 3 rounds of nebulized bronchodilators [id number] Continue around the clock bronchodilators, increase the frequency to q 4 hours. Maintain on iv steroids Agree with antibiotics Rate control with Cardizem drip. Fully anticoagulated Hopefully she will start to improve DNR/DNI Will follow up
[2017-10-11] MEDS: LEVALBUTEROL 0.63MG/3 ML NEB INH SCH (19:59)
[2017-10-11] MEDS: INSULIN ASPART 100 UNITS/ML 3 ML PEN SC SCH (21:00)
[2017-10-11 23:07] LABS: INFLUENZA A PCR Neg for Influ A (NEG); INFLUENZA B PCR Neg for Influ B (NEG)
[2017-10-11] MEDS: AMIODARONE / D5W 200 ML IV SCH (23:35)
[2017-10-12] MEDS: METHYLPREDNISOLONE IV 40 MG in SYRINGE 0 ML IV SCH ×2 (00:33→07:54)
[2017-10-12] MEDS: CEFEPIME IV 2,000 MG in SYRINGE 7.5 ML IV SCH ×2 (00:33→07:54)
[2017-10-12 03:30] VITALS: BP 134/59; PULSE 95; TEMP 36.9; O2SAT 96
[2017-10-12] MEDS: LEVALBUTEROL 0.63MG/3 ML NEB INH SCH ×3 (04:00→07:05)
[2017-10-12] MEDS: IPRATROPIUM BROMIDE NEB SOLN 0.02% 2.5 ML VIAL INH SCH ×3 (04:00→07:05)
[2017-10-12 06:06] LABS: HEMATOCRIT 39.7 % (37-47); HEMOGLOBIN 13.2 g/dL (12.0-16.0); MEAN CELL VOLUME 96.8 fL (80-100); MEAN CORPUSCULAR HEMOGLOBIN 32.2 pg (25-34); MEAN CORPUSCULAR HGB CONC 33.2 g/dl (32-36); MEAN PLATELET VOLUME 9.3 fL (7.4-10.4); PLATELET COUNT 259 K/uL (130-400); RED CELL DISTRIBUTION WIDTH CV 13.4 % (11.5-14.5); RED CELL DISTRIBUTION WIDTH SD 47.5 fL (36.4-46.3); WHITE BLOOD COUNT 24.19 K/uL (4.8-10.8)
[2017-10-12 06:18] LABS: INR 2.2 (0.9-1.1)
[2017-10-12 06:43] VITALS: PULSE 95; O2SAT 98
[2017-10-12 06:44] LABS: CALCIUM 9.2 mg/dl (8.5-10.1); CREATININE 0.76 mg/dl (0.60-1.20); POTASSIUM 3.9 mmol/L (3.5-5.1)
[2017-10-12] MEDS: INSULIN ASPART 100 UNITS/ML 3 ML PEN SC SCH (07:00)
[2017-10-12 07:07] VITALS: PULSE 95; O2SAT 99
[2017-10-12 07:08] VITALS: PULSE 108; O2SAT 99
[2017-10-12 07:29] VITALS: BP 114/82; PULSE 96; TEMP 36.4; O2SAT 100
[2017-10-12] MEDS ORDERED: CARVEDILOL 25 MG TAB PO SCH (09:00)
[2017-10-12 09:02] LABS: HEMOGLOBIN A1C 6.1 % (4.5-5.6)
--- NOTE | 2017-10-12 10:25 | Clinical Documentation Query ---
MARY King : CLINICAL DOCUMENTATION QUERY Patient is a 66 year old female admitted for treatment of acute respiratory failure secondary to COPD exacerbation, afib with RVR, and the following: "Chronic systolic CHF: -Euvolemic on exam -CXR with probable early CHF -BNP pending -Echo as noted above -Given 40mg IV lasix " Attending added "suspected pulmonary edema" and "IV furosemide added for CHF". As appropriate, consider explicit documentation of these clinical findings as suggested below. Thank you. In your clinical opinion is this patient being managed for: ( x ) Acute on chronic systolic CHF ( ) Not Agree ( ) Other explanation of clinical findings (Please Explain) ( ) Unable to determine (Please Define) ( ) Need to Discuss The medical record reflects the following clinical findings, treatment, and risk factors. Clinical Indicators: As above Treatment: IV Lasix, telemetry, Bi-PAP, rate control, cardiology consultation. Risk Factors: Known chronic systolic CHF, afib with RVR, HTN Please clarify and document your clinical opinion in the progress notes and discharge summary. Terms such as "probable", "suspected", "likely", "questionable", "possible", or "still to be ruled out" are acceptable. IF IN AGREEMENT, YOU MUST DOCUMENT ABOVE DIAGNOSTIC STATEMENT IN DAILY PROGRESS NOTES AND DISCHARGE SUMMARY. This document is not part of the patient's record. Thank You, Oren Márquez, RN [phone]
[2017-10-12] MEDS: AMIODARONE / D5W 200 ML IV SCH (10:27)
[2017-10-12 11:10] VITALS: BP 146/94; PULSE 88; TEMP 36.4; O2SAT 96
[2017-10-12] MEDS ORDERED: ATROPINE SULFATE 0.1 MG/ML 5ML SYR ONE (11:30)
--- NOTE | 2017-10-12 12:41 | Progress Note ---
Progress Note Date of Service Oct 12, 2017. Progress Note ATTENDING NOTE : pt seen at bedside for evaluation on Bipap , very anxious . wants to be off Bipap Spo2 94 % on Amiodarone gtt , on controlled Afib HR 80's discussed pt's status and prognosis with -who is present at bedside pt had " Code purple " yesterday , while off Bipap on transition from ER to PCU did not wanted any aggressive-resuscitation -no mechanical ventilation , no CPR DNR/DNI pt was found awake, using accessory muscles , very anxious , pulling at Bipap mask asking to take it off after discussing with , trial of transition to high flow 02 via oxy mask was attempted pt appeared to more calm after taking off Bipap , in few seconds pulse oximetry shows marked decline pt was placed back to Bipap , during the process-pt became bradycardic ,IV Amiodarone D/jordon code purple was called Physical exam : prior to CODE purple : Gen : in respiratory distress, on Bipap very anxious , diaphoretic , pulling at mask HEENT: sclera non icteric , PERRLA Lungs; very diminished air entry , no wheeze or rales noted , using accessory muscles to breath HT : irregular abdomen : soft , non tender Ext ; no lower ext edema noted Neuro : very anxious . moving all limbs , able to talk while on Bipap , limited eval ACUTE HYPOXEMIC RESPIRATORY FAILURE /PEA CARDIAC ARREST/PATIENT : presented with acute hypoxemic respiratory failure -COPD exacerbation/ bronchitis leading -rapid afib RVR History of underlying advanced COPD on home O2 Quick desaturation noted we did attempt to transition from BiPAP to oxygen mask on 8 L oxygen Was put on BiPAP immediately Developed bradycardia leading to PEA cardiac arrest code purple was called bag ventilation provided patient is a DNR DNI-which was confirmed again with who was present in hospital per pt never wanted to chest compression /Shock or mechanical ventilation no CPR initiated - was okay with meds for resuscitation given 3 rounds of Epi/Atropine -with 's permission no pulse /or respiratory movement noted monitor had few PVC with epi/atropine , leading to PEA again no pulse or breathing effort noted after 5 mins of bedside support within the limitation of pt's status of DNR/DNI no palpable pulse -absence of pulse in radial , femoral and carotid no heart sound or breathing sound present pupils bilateral dilated no heart rhythm on tele pt is pronounced time of 11: 33 AM Cause of : Acute hypoxemic respiratory failure /PEA cardiac arrest Pt's daughter Migdalia arrived -was distraught , crying was present form the beginning support provided to family events leading to pt's decline in status to cardiac arrest - ; explained to best of the knowledge all questions answered Family also given contact info for any questions and concerns .
[2017-10-12] MEDS ORDERED: AZITHROMYCIN IV 500 MG in DEXTROSE 5% 250ML 250 ML IV SCH (13:00)
[2017-10-12] MEDS ORDERED: DIGOXIN 0.125 MG TAB PO SCH (16:00)
[2017-10-12] MEDS ORDERED: WARFARIN SOD 5 MG TAB PO SCH (16:00)
--- NOTE | 2017-10-12 17:15 | Discharge Summary ---
Discharge Summary Date of Service Oct 12, 2017. Discharge Summary Admission Date: Oct 11, 2017 at 13:11 Discharge Date: Oct 12, 2017 Discharge Disposition: Admission Information HPI (per Admitting provider): This is a 66yo F with a PMH of chronic A Fib (on coumadin), systolic HF (EF of 50%), asthma/COPD, HTN, MATTHEW and other medical problems listed below who presents with SOB x 2 days. Patient developed a cough 3 days ago that is productive with green sputum. Endorses chills, subjective fever, wheezing and pleuritic chest pain. States that chest hurts only when coughing and is a 2/10. Required 2L NC O2 for the past two nights 2/2 SOB, which she usually does not need. Daughter visited patient this AM and found her in respiratory distress with mild confusion. EMS was called and EKG showed A Fib with RVR at a rate ~ 200. Also found to be hypoxic on room air to 70%. Was given 15mg IV cardizem en route as well as a duoneb treatment and placed on bipap. Once in ED, HR improved to 110s and O2 saturation improved to mid-90s on bipap. Patient states she has been taking all medications and inhalers as scheduled at home but did not taking any today. Denies any lightheadedness, confusion, near-syncope, diaphoresis, visual changes, palpitations, abdominal pain, nausea, vomiting or LE swelling. Physical Exam (per Admitting): General Appearance: + mild distress, + pertinent finding (Bipap mask in place. Able to nod yes/no. ) Head: normocephalic, atraumatic Eyes: normal inspection, PERRL, sclerae normal ENT: normal ENT inspection, hearing grossly normal, + pertinent finding ( bipap mask ) Neck: supple, no JVD Respiratory/Chest: chest non-tender, + wheezing (Diffuse wheezing throughout lung corea ), + pertinent finding (Tachypneic. Improved with bipap ) Cardiovascular: normal peripheral pulses, + tachycardia, + irregularly irregular Abdomen/GI: non tender, soft, no organomegaly, + pertinent finding (ventral hernia ) Back: normal inspection, + pertinent finding (small bruises on thoracic spine. Non-tender ) Extremities/Musculoskelatal: normal inspection, no calf tenderness, no pedal edema Neurologic/Psych: no motor/sensory deficits, alert, normal mood/affect, oriented x 3 Skin: normal color, warm/dry Hospital Course Acute respiratory failure with hypoxia and hypercapnia COPD exacerbation CHF A-fib with RVR Plan: Continue non-invasive ventilation. I increased the settings to 15/6. Administered 3 rounds of nebulized bronchodilators [id number] Continue around the clock bronchodilators, increase the frequency to q 4 hours. Maintain on iv steroids Agree with antibiotics Rate control with Cardizem drip. Fully anticoagulated Hopefully she will start to improve DNR/DNI Will follow up Patient Discharge Instructions Patient
== END 2017-10-12 15:01 | disposition expired | DRG 189 ==
LOC: EDBD 09:59 → C.EDB 10:00 → C.2T 13:11 → ENRESERV 13:56
PROVIDERS: ADMIT Hospitalist; ATTEND Hospitalist
DX: J96.01 Acute respiratory failure with hypoxia (principal); J44.1 Chronic obstructive pulmonary disease with (acute) exacerbation; I50.22 Chronic systolic (congestive) heart failure; J96.02 Acute respiratory failure with hypercapnia; R73.9 Hyperglycemia, unspecified; T38.0X5A Adverse effect of glucocorticoids and synthetic analogues, initial encounter; R00.1 Bradycardia, unspecified; I49.3 Ventricular premature depolarization; R07.81 Pleurodynia; I48.2 Chronic atrial fibrillation; I35.0 Nonrheumatic aortic (valve) stenosis; I11.0 Hypertensive heart disease with heart failure; S22.089D Unspecified fracture of T11-T12 vertebra, subsequent encounter for fracture with routine healing; X58.XXXD Exposure to other specified factors, subsequent encounter; F41.1 Generalized anxiety disorder; Z66 Do not resuscitate; Z99.81 Dependence on supplemental oxygen; Z79.83 Long term (current) use of bisphosphonates; Z79.51 Long term (current) use of inhaled steroids; Z79.01 Long term (current) use of anticoagulants; Z79.899 Other long term (current) drug therapy; Z88.5 Allergy status to narcotic agent